=== PATIENT | male | born 1965 | race Caucasian/White ===

== ENCOUNTER 2016-04-20 11:54 | Emergency (ER) | payer MEDICAID ==
[~2016-04-20] VITALS: Ht 170.2 cm; Wt 65.9 kg
[~2016-04-20 11:54] MED LIST: AMBIEN 5MG TABLE5 MG; AMOXICILLIN 50500 MG PO; AMOXICILLIN 8751 TAB PO; AMOXICILLIN500 M1 PO; ASPI81EC86; ASPIR-LOW81 MG PO; ASPIRIN E.C. 8181 MG PO; BACTRIM DS 8001 TAB PO; BETAMETHASONE; CELEXA; CENTRUM1 TAB PO; CLEOCIN HC150 MG/CAP PO; CLINDAMYCIN HC150 MG PO; CLINDAMYCIN HC300 MG PO; COGENTIN 1MG1 MG/TAB PO; CORTIZONE-10 MAXIM1% TP; ESCITALOPRAM; FLAGYL500 MG PO; GLUCOSAMINE; KLONOPIN 0.5MG0.5 MG PO; KLOR-CON 1010 MEQ PO; LEVAQUIN 750MG750 M1 PO; LEXAPRO 10MG10 MG PO; LEXAPRO20 MG PO; LORTAB 5/500 501 TAB PO; NEXIUM 20MG20 MG PO; NORCO 325 MG-51 TAB PO; NORCO 325 MG-7.1 TAB PO; PEN-VEE K500 MG PO; PENTASA500 MG PO; PERCOCET 5/321 UDTAB PO; REMERON SOLTAB45 MG PO; SEPTRA DS 8001 TAB PO; SEROQUEL; SEROQUEL XR150 MG PO; SEROQUEL200 MG PO; SEROQUEL50 MG PO; TESSALON P100 MG/CAP PO; THORAZINE PO; TRAMADOL50 MG PO; ULTRAM 50MG TAB50 MG PO; ULTRAM50 MG PO; VICODIN 5/5001 UDTAB PO; XANAX .25M0.25 MG/TA PO; [UNRECOGNIZED DRUG - OTHER]; [UNRECOGNIZED DRUG - OTHER]
[2016-04-20 11:58] VITALS: BP 122/86; TEMP 97.7
[2016-04-20] MEDS ORDERED: NORCO 325 MG-51 TAB PO (13:47)
[2016-04-20] MEDS ORDERED: CLEOCIN HCL300 MG PO (13:47)
[2016-04-20 13:56] VITALS: PULSE 82
[2016-07-20] MEDS ORDERED: RAPAFLO4 MG PO (15:07)
[2016-07-21] MEDS ORDERED: COLESTID 1GM1 G PO (06:46)
[2016-07-21] MEDS ORDERED: FLAGYL500 MG PO (06:47)
[2016-07-24] MEDS ORDERED: COLESTID 1GM1 G PO (09:22)
[2016-07-24] MEDS ORDERED: PREDNISONE 5MG5 MG PO (09:24)
== END 2016-04-20 13:57 | disposition home or self-care (01) ==
LOC: COL.ER 11:54
DX: S61.012A Laceration without foreign body of left thumb without damage to nail, initial encounter (principal); K08.89 Other specified disorders of teeth and supporting structures; W26.0XXA Contact with knife, initial encounter

== ENCOUNTER 2016-07-23 02:17 | Emergency (ER) | payer MEDICAID ==
[~2016-07-23] VITALS: Ht 170.2 cm; Wt 79.1 kg
[~2016-07-23 02:17] MED LIST changes: +CLEOCIN HCL300 MG PO; +COLESTID 1GM1 G PO; +RAPAFLO4 MG PO
[2016-07-23 02:20] VITALS: BP 129/80; PULSE 60; TEMP 98.1
[2016-07-23] MEDS ORDERED: AMOXICILLIN 50500 MG PO (02:35)
[2016-07-23] MEDS ORDERED: SEROQUEL 1100 MG/TAB PO (02:43)
[2016-07-23] MEDS ORDERED: PROTONIX 40MG T40 MG PO (02:44)
[2016-07-23] MEDS ORDERED: ALBUTEROL0.83 MG/ML IH (02:45)
[2016-07-23] MEDS ORDERED: PROAIR HFA0.09 MG/AC IH (02:45)
[2016-07-24] MEDS ORDERED: COLESTID 1GM1 G PO (09:22)
[2016-07-24] MEDS ORDERED: PREDNISONE 5MG5 MG PO (09:24)
== END 2016-07-23 02:50 | disposition home or self-care (01) ==
LOC: COL.ER 02:17
DX: K08.89 Other specified disorders of teeth and supporting structures (principal); K03.81 Cracked tooth; F17.210 Nicotine dependence, cigarettes, uncomplicated; F31.9 Bipolar disorder, unspecified

== ENCOUNTER → 2016-07-24 | Outpatient (CLI) | payer MEDICAID ==
[~2016-07-24] VITALS: Ht 170.2 cm; Wt 77.5 kg
[~2016-07-24] MED LIST changes: +ALBUTEROL0.83 MG/ML IH; +CARAFATE 1GM1 G PO; +DOXYCYCLINE HY100 MG PO; +PLAVIX 75MG TAB75 MG PO; +PRAVACHOL 40MG40 MG PO; +PREDNISONE 5MG5 MG PO; +PROAIR HFA0.09 MG/AC IH; +PROTONIX 40MG T40 MG PO; +SEROQUEL 1100 MG/TAB PO; +TOPROL XL 25MG25 MG PO
[2016-07-24 09:26] VITALS: BP 121/89; PULSE 65
[2016-07-24 10:48] VITALS: BP 154/66; PULSE 73
[2016-07-24 10:49] VITALS: BP 119/69; PULSE 75
[2016-07-24 10:50] VITALS: BP 118/66; PULSE 69
== END ==
LOC: COL.CARD 09:13
DX: R07.9 Chest pain, unspecified (principal)
CPT/HCPCS: A9502; J2785

== ENCOUNTER 2016-07-28 09:51 | Emergency (ER) | payer MEDICAID ==
[~2016-07-28] VITALS: Ht 170.2 cm; Wt 72.7 kg
[~2016-07-28 09:51] MED LIST changes: -CARAFATE 1GM1 G PO; -DOXYCYCLINE HY100 MG PO; -PLAVIX 75MG TAB75 MG PO; -PRAVACHOL 40MG40 MG PO; -TOPROL XL 25MG25 MG PO
[2016-07-28 09:55] VITALS: BP 115/68; PULSE 82; TEMP 97.9
[2016-07-28] MEDS ORDERED: DOXYCYCLINE HY100 MG PO (10:20)
== END 2016-07-28 10:44 | disposition home or self-care (01) ==
LOC: COL.ER 09:51
DX: L03.113 Cellulitis of right upper limb (principal)

== ENCOUNTER → 2016-07-30 | Outpatient (CLI) | payer MEDICAID ==
[~2016-07-30] MED LIST changes: +CARAFATE 1GM1 G PO; +DOXYCYCLINE HY100 MG PO; +PLAVIX 75MG TAB75 MG PO; +PRAVACHOL 40MG40 MG PO; +TOPROL XL 25MG25 MG PO
== END ==
LOC: COL.RAD 07-28 09:45
DX: B18.2 Chronic viral hepatitis C (principal); Z53.09 Procedure and treatment not carried out because of other contraindication; R74.8 Abnormal levels of other serum enzymes; R10.84 Generalized abdominal pain

== ENCOUNTER 2016-07-31 09:32 | Day surgery (SDC) | payer MEDICAID ==
[~2016-07-31] VITALS: Ht 170.2 cm; Wt 77.9 kg
[~2016-07-31 09:32] MED LIST changes: -CARAFATE 1GM1 G PO; -PLAVIX 75MG TAB75 MG PO; -PRAVACHOL 40MG40 MG PO; -TOPROL XL 25MG25 MG PO
[2016-07-31 10:20] VITALS: BP 118/84; PULSE 68; TEMP 98.1
[2016-07-31 10:43] LABS: BASO % 0.5 % (0.0-2.0); EOS # 0.3 (0.0-0.7); EOS % 4.4 % (0-4.0); GRAN # 2.2 (1.4-6.5); GRAN % 36.1 % (42.2-75.2); HEMATOCRIT 43.5 % (42.0-52.0); LYMPH # 2.7 (1.2-3.4); LYMPH % 44.6 % (20.0-51.0); MEAN CELL VOLUME 95 fl (80.0-100.0); MEAN CORPUSCULAR HEMOGLOBIN 33 pg (27.0-31.0); MEAN CORPUSCULAR HGB CONC 35 g/dl (33.0-37.0); MEAN PLATELET VOLUME 10.2 fl (7.4-10.4); MONO # 0.9 (0.1-0.6); MONO % 14.1 % (1.7-9.3); PLATELET COUNT 200 K/mm3 (130-400); RED BLOOD COUNT 4.56 M/mm3 (4.20-5.60); REDCELL DISTRIBUTION WIDTH-CV 14.5 % (11.5-14.5); WHITE BLOOD COUNT 6.1 K/mm3 (4.8-10.8)
[2016-07-31 10:45] LABS: PROTHROMBIN TIME 10.9 SECONDS (9.7-12.8)
[2016-07-31 11:29] LABS: ADJUSTED CALCIUM 8.7 mg/dL (8.4-10.2); ALBUMIN 4.1 gm/dL (3.5-5.0); BILIRUBIN,TOTAL 0.7 mg/dL (0.0-1.0); CALCIUM 8.8 mg/dL (8.4-10.2); CREATININE, serum 0.67 mg/dL (0.66-1.25)
[2016-07-31 12:00] VITALS: BP 113/66; PULSE 52; TEMP 97.7
[2016-07-31 12:15] VITALS: BP 125/85; PULSE 60
[2016-07-31 12:30] VITALS: BP 132/94; PULSE 70
[2016-07-31 13:37] VITALS: BP 96/67; PULSE 55
== END 2016-07-31 12:54 | disposition home or self-care (01) ==
LOC: SDCO 09:32
PROVIDERS: Physician Assistant
DX: K21.9 Gastro-esophageal reflux disease without esophagitis (principal); K30 Functional dyspepsia; M19.90 Unspecified osteoarthritis, unspecified site; B18.2 Chronic viral hepatitis C; J45.909 Unspecified asthma, uncomplicated; F32.9 Major depressive disorder, single episode, unspecified
CPT/HCPCS: 87522; J2250; J3010; J7030

== ENCOUNTER → 2016-08-05 | Outpatient (CLI) | payer MEDICAID ==
[~2016-08-05] MED LIST changes: +CARAFATE 1GM1 G PO; +PLAVIX 75MG TAB75 MG PO; +PRAVACHOL 40MG40 MG PO; +TOPROL XL 25MG25 MG PO
== END ==
LOC: COL.RAD 09:43
DX: B18.2 Chronic viral hepatitis C (principal); R74.8 Abnormal levels of other serum enzymes; R10.9 Unspecified abdominal pain; K76.89 Other specified diseases of liver; Z90.49 Acquired absence of other specified parts of digestive tract

== ENCOUNTER 2016-08-09 02:05 | Inpatient (IN) | payer MEDICAID ==
[~2016-08-09] VITALS: Ht 165.1 cm; Wt 78.4 kg
[2016-08-09] VITALS (277 sets, daily range): BP systolic 93–130; BP diastolic 56–86; PULSE 77–95; TEMP 97.7–98.4; O2SAT 85–100
[~2016-08-09 02:05] MED LIST changes: -CARAFATE 1GM1 G PO; -PLAVIX 75MG TAB75 MG PO; -PRAVACHOL 40MG40 MG PO; -TOPROL XL 25MG25 MG PO
[2016-08-09 06:46] LABS: MEAN CELL VOLUME 91 fl (80.0-100.0); MEAN CORPUSCULAR HGB CONC 36 g/dl (33.0-37.0); MEAN PLATELET VOLUME 10.9 fl (7.4-10.4); PLATELET COUNT 173 K/mm3 (130-400); RED BLOOD COUNT 3.58 M/mm3 (4.20-5.60); REDCELL DISTRIBUTION WIDTH-CV 13.7 % (11.5-14.5); WHITE BLOOD COUNT 12.9 K/mm3 (4.8-10.8)
[2016-08-09 06:49] LABS: ADD PATHOLOGY DIFF REVIEW NO; HEMATOCRIT 32.7 % (42.0-52.0); HEMOGLOBIN 11.6 g/dl (13.5-18.0); MEAN CORPUSCULAR HEMOGLOBIN 32 pg (27.0-31.0)
[2016-08-09 07:03] LABS: ADJUSTED CALCIUM 8.5 mg/dL (8.4-10.2); ALBUMIN 3.7 gm/dL (3.5-5.0); BILIRUBIN,TOTAL 1.7 mg/dL (0.0-1.0); CALCIUM 8.3 mg/dL (8.4-10.2); CREATININE, serum 1.58 mg/dL (0.66-1.25); POTASSIUM 4.6 mmol/L (3.4-5.0); TOTAL PROTEIN 6.4 gm/dL (6.4-8.2)
[2016-08-09 08:04] LABS: BAND 7 % (0-10); NEUTROPHILS 64 % (42.0-75.2); PLATELET ESTIMATE NORMAL (NORMAL); TOTAL CELLS COUNTED 100
[2016-08-09 11:20] LABS: PH 5 (5-8); SQUAMOUS EPITHELIAL None Seen /hpf; URINE APPEARANCE Clear; URINE BACTERIA None Seen /hpf; URINE BILIRUBIN Negative (NEGATIVE); URINE BLOOD Negative (NEGATIVE); URINE COLOR Yellow; URINE GLUCOSE 1+ (NEGATIVE); URINE KETONE Trace (NEGATIVE); URINE RBC 0-2 /hpf; URINE UROBILINOGEN Negative (NEGATIVE); URINE WBC 0-2 /hpf
[2016-08-09 11:56] LABS: AMPHETAMINE URINE POSITIVE; BARBITURATES URINE NEGATIVE; BENZODIAZEPINES URINE POSITIVE; BUPRENORPHINE URINE NEGATIVE; METHADONE URINE NEGATIVE; OPIATES URINE NEGATIVE; OXYCODONE URINE NEGATIVE; PHENCYCLIDINE URINE NEGATIVE; PROPOXYPHENE URINE NEGATIVE; THC CANNABINOIDS URINE NEGATIVE
[2016-08-10] VITALS (339 sets, daily range): BP systolic 93–132; BP diastolic 71–88; PULSE 80–97; TEMP 97.8–98.9; O2SAT 76–100
[2016-08-10 09:56] LABS: BASO % 0.4 % (0.0-2.0); EOS # 0.1 (0.0-0.7); EOS % 1.1 % (0-4.0); GRAN # 4.6 (1.4-6.5); GRAN % 63.5 % (42.2-75.2); LYMPH # 1.5 (1.2-3.4); LYMPH % 19.9 % (20.0-51.0); MEAN CELL VOLUME 95 fl (80.0-100.0); MEAN CORPUSCULAR HGB CONC 34 g/dl (33.0-37.0); MEAN PLATELET VOLUME 10.6 fl (7.4-10.4); MONO # 1.1 (0.1-0.6); MONO % 14.8 % (1.7-9.3); PLATELET COUNT 141 K/mm3 (130-400); RED BLOOD COUNT 3.18 M/mm3 (4.20-5.60); REDCELL DISTRIBUTION WIDTH-CV 14.1 % (11.5-14.5); WHITE BLOOD COUNT 7.3 K/mm3 (4.8-10.8)
[2016-08-10 10:06] LABS: CALCIUM 7.8 mg/dL (8.4-10.2); CREATININE, serum 0.76 mg/dL (0.66-1.25)
[2016-08-10 10:31] LABS: HEMATOCRIT 30.3 % (42.0-52.0); HEMOGLOBIN 10.4 g/dl (13.5-18.0); MEAN CORPUSCULAR HEMOGLOBIN 33 pg (27.0-31.0)
[2016-08-11] VITALS: BP 128/76; PULSE 98; TEMP 98
[2016-08-11 04:01] VITALS: BP 134/76; PULSE 77; TEMP 98.3
[2016-08-11 07:20] VITALS: BP 129/88; PULSE 78; TEMP 98.1
[2016-08-11 12:05] VITALS: BP 129/88; BP 135/75; PULSE 78; TEMP 98.4
== END 2016-08-11 16:35 | disposition home or self-care (01) | DRG 896 ==
LOC: IMCU 02:05
PROVIDERS: Family Medicine
DX: F15.121 Other stimulant abuse with intoxication delirium (principal); K22.6 Gastro-esophageal laceration-hemorrhage syndrome; K92.0 Hematemesis; N17.9 Acute kidney failure, unspecified; F10.159 Alcohol abuse with alcohol-induced psychotic disorder, unspecified; F25.0 Schizoaffective disorder, bipolar type; Y90.0 Blood alcohol level of less than 20 mg/100 ml
CPT/HCPCS: 90791-AI; 99222-AI; 99232-AI; 99233-AI; 99239; C9113; J1630; J2060; J7030

== ENCOUNTER 2016-08-13 18:18 | Observation (INO) | payer MEDICAID ==
[~2016-08-13] VITALS: Wt 77.3 kg
[2016-08-13 19:01] LABS: BASO % 0.4 % (0.0-2.0); EOS # 0.5 (0.0-0.7); GRAN # 4.2 (1.4-6.5); GRAN % 47.7 % (42.2-75.2); HEMATOCRIT 36.8 % (42.0-52.0); HEMOGLOBIN 12.9 g/dl (13.5-18.0); LYMPH # 2.8 (1.2-3.4); LYMPH % 31.3 % (20.0-51.0); MEAN CELL VOLUME 93 fl (80.0-100.0); MEAN CORPUSCULAR HEMOGLOBIN 33 pg (27.0-31.0); MEAN CORPUSCULAR HGB CONC 35 g/dl (33.0-37.0); MEAN PLATELET VOLUME 10.3 fl (7.4-10.4); MONO # 1.4 (0.1-0.6); MONO % 15.2 % (1.7-9.3); PLATELET COUNT 238 K/mm3 (130-400); RED BLOOD COUNT 3.94 M/mm3 (4.20-5.60); REDCELL DISTRIBUTION WIDTH-CV 13.5 % (11.5-14.5); WHITE BLOOD COUNT 8.9 K/mm3 (4.8-10.8)
[2016-08-13 19:13] LABS: ADJUSTED CALCIUM 8.9 mg/dL (8.4-10.2); ALANINE AMINOTRANSFERASE 55 U/L (21-72); ALBUMIN 3.9 gm/dL (3.5-5.0); ALKALINE PHOSPHATASE 55 U/L (50-136); ANION GAP 12 mmol/L (7-16); BILIRUBIN,TOTAL 0.5 mg/dL (0.0-1.0); BLOOD UREA NITROGEN 14 mg/dL (9-20); CALCIUM 8.8 mg/dL (8.4-10.2); CARBON DIOXIDE 24 mmol/L (22-30); CHLORIDE 102 mmol/L (98-107); CREATININE, serum 0.76 mg/dL (0.66-1.25); GLUCOSE 88 mg/dL (74-106); LIPASE 976 U/L (23-300); POTASSIUM 3.9 mmol/L (3.4-5.0); SODIUM 138 mmol/L (137-145); TOTAL PROTEIN 6.8 gm/dL (6.4-8.2)
[2016-08-13 19:14] LABS: C-REACTIVE PROTEIN < 0.5 mg/dL (0.0-0.9)
[2016-08-13 19:23] LABS: TROPONIN-I < 0.012 ng/mL (0.000-0.034)
[2016-08-13 19:24] LABS: ERYTHROCYTE SEDIMENTATION RATE 19 mm/hr (0-15)
[2016-08-13 19:41] LABS: AMPHETAMINE URINE NEGATIVE; BARBITURATES URINE NEGATIVE; BENZODIAZEPINES URINE NEGATIVE; BUPRENORPHINE URINE NEGATIVE; METHADONE URINE NEGATIVE; OPIATES URINE NEGATIVE; OXYCODONE URINE NEGATIVE; PHENCYCLIDINE URINE NEGATIVE; PROPOXYPHENE URINE NEGATIVE; THC CANNABINOIDS URINE NEGATIVE
[2016-08-13 22:10] VITALS: BP 153/92; PULSE 65; TEMP 97.9
[2016-08-14 03:48] VITALS: BP 102/60; PULSE 58; TEMP 98
[2016-08-14 08:41] VITALS: BP 127/91; PULSE 61; TEMP 98.5
[2016-08-14 12:40] VITALS: BP 123/77; PULSE 54
[2016-08-14 12:57] VITALS: BP 113/76; PULSE 60
== END 2016-08-14 12:45 | disposition left against medical advice (07) ==
LOC: COL.ER 18:18 → MEDICAL 20:25
PROVIDERS: Emergency Medicine
DX: K29.30 Chronic superficial gastritis without bleeding (principal); K21.9 Gastro-esophageal reflux disease without esophagitis; F41.9 Anxiety disorder, unspecified; F32.9 Major depressive disorder, single episode, unspecified; F17.210 Nicotine dependence, cigarettes, uncomplicated; J44.9 Chronic obstructive pulmonary disease, unspecified; J45.909 Unspecified asthma, uncomplicated; K52.9 Noninfective gastroenteritis and colitis, unspecified; F20.0 Paranoid schizophrenia; Z87.448 Personal history of other diseases of urinary system; Z90.49 Acquired absence of other specified parts of digestive tract
CPT/HCPCS: C9113; G0378; G8978-GP; G8979-GP; G8980-GP; J1170; J2405; J2550; J2704; J2765; J7030; J7120; Q9967

== ENCOUNTER 2016-09-09 20:56 | Observation (INO) | payer MEDICAID ==
[~2016-09-09] VITALS: Ht 170.2 cm; Wt 72.8 kg
[2016-09-09 21:41] LABS: HEMATOCRIT 39.9 % (42.0-52.0); HEMOGLOBIN 13.8 g/dl (13.5-18.0); MEAN CELL VOLUME 93 fl (80.0-100.0); MEAN CORPUSCULAR HEMOGLOBIN 32 pg (27.0-31.0); MEAN CORPUSCULAR HGB CONC 35 g/dl (33.0-37.0); MEAN PLATELET VOLUME 10.9 fl (7.4-10.4); PLATELET COUNT 155 K/mm3 (130-400); RED BLOOD COUNT 4.28 M/mm3 (4.20-5.60); REDCELL DISTRIBUTION WIDTH-CV 13.3 % (11.5-14.5); WHITE BLOOD COUNT 10.6 K/mm3 (4.8-10.8)
[2016-09-09 21:43] LABS: PH 6 (5-8); SQUAMOUS EPITHELIAL None Seen /hpf; URINE APPEARANCE Clear; URINE BACTERIA None Seen /hpf; URINE BILIRUBIN Negative (NEGATIVE); URINE BLOOD 1+ (NEGATIVE); URINE COLOR Yellow; URINE GLUCOSE 2+ (NEGATIVE); URINE KETONE Negative (NEGATIVE); URINE RBC 0-2 /hpf; URINE UROBILINOGEN Negative (NEGATIVE); URINE WBC 0-2 /hpf
[2016-09-09 21:48] LABS: ADD PATHOLOGY DIFF REVIEW NO
[2016-09-09 21:48] LABS: AMPHETAMINE URINE POSITIVE; BARBITURATES URINE NEGATIVE; BENZODIAZEPINES URINE NEGATIVE; BUPRENORPHINE URINE NEGATIVE; METHADONE URINE NEGATIVE; OPIATES URINE NEGATIVE; OXYCODONE URINE NEGATIVE; PHENCYCLIDINE URINE NEGATIVE; PROPOXYPHENE URINE NEGATIVE; THC CANNABINOIDS URINE NEGATIVE
[2016-09-09 21:50] LABS: ALANINE AMINOTRANSFERASE 201 U/L (21-72); ALKALINE PHOSPHATASE 66 U/L (50-136); ANION GAP 9 mmol/L (7-16); BILIRUBIN,TOTAL 0.6 mg/dL (0.0-1.0); BLOOD UREA NITROGEN 21 mg/dL (9-20); C-REACTIVE PROTEIN 1.3 mg/dL (0.0-0.9); CARBON DIOXIDE 30 mmol/L (22-30); CHLORIDE 93 mmol/L (98-107); GLUCOSE 94 mg/dL (74-106); LIPASE 233 U/L (23-300); POTASSIUM 3.8 mmol/L (3.4-5.0); SODIUM 132 mmol/L (137-145)
[2016-09-09 22:05] LABS: TROPONIN-I 0.041 ng/mL (0.000-0.034)
[2016-09-09 22:21] LABS: BAND 14 % (0-10); NEUTROPHILS 29 % (42.0-75.2); TOTAL CELLS COUNTED 100
[2016-09-09 23:16] VITALS: BP 117/70; PULSE 71; TEMP 98.2
[2016-09-10 00:13] VITALS: BP 117/70; PULSE 95; TEMP 98.3
[2016-09-10 00:47] LABS: HEMATOCRIT 36.5 % (42.0-52.0); HEMOGLOBIN 12.6 g/dl (13.5-18.0)
[2016-09-10 03:12] VITALS: BP 103/58; PULSE 56; TEMP 98.8
[2016-09-10 07:14] LABS: HEMOGLOBIN 12.4 g/dl (13.5-18.0); MEAN CELL VOLUME 95 fl (80.0-100.0); MEAN CORPUSCULAR HEMOGLOBIN 32 pg (27.0-31.0); MEAN CORPUSCULAR HGB CONC 34 g/dl (33.0-37.0); PLATELET COUNT 148 K/mm3 (130-400); RED BLOOD COUNT 3.83 M/mm3 (4.20-5.60); REDCELL DISTRIBUTION WIDTH-CV 13.3 % (11.5-14.5); WHITE BLOOD COUNT 9.9 K/mm3 (4.8-10.8)
[2016-09-10 07:19] LABS: ADD PATHOLOGY DIFF REVIEW NO; HEMATOCRIT 36.3 % (42.0-52.0)
[2016-09-10 07:23] LABS: ALBUMIN 3.3 gm/dL (3.5-5.0); BILIRUBIN,TOTAL 0.6 mg/dL (0.0-1.0); CALCIUM 8.4 mg/dL (8.4-10.2); CREATININE, serum 0.86 mg/dL (0.66-1.25); POTASSIUM 4.1 mmol/L (3.4-5.0); TOTAL PROTEIN 5.8 gm/dL (6.4-8.2)
[2016-09-10 07:56] LABS: BAND 7 % (0-10); EOSINOPHIL 3 % (0-4); NEUTROPHILS 42 % (42.0-75.2); TOTAL CELLS COUNTED 100
[2016-09-10 07:57] LABS: PLATELET ESTIMATE DECREASED (NORMAL)
[2016-09-10 08:27] VITALS: BP 90/53; PULSE 63; TEMP 98.5
[2016-09-10 16:50] VITALS: BP 121/71; PULSE 67; TEMP 98.2
[2016-09-10 19:39] VITALS: BP 136/74; PULSE 73; TEMP 98.6
[2016-09-11 00:56] VITALS: BP 122/65; PULSE 57; TEMP 98.8
[2016-09-11 03:09] VITALS: BP 97/71; PULSE 56; TEMP 98.1
[2016-09-11 08:13] VITALS: BP 115/75; PULSE 56; TEMP 98.2
[2016-09-11 08:16] LABS: HEMOGLOBIN 12.3 g/dl (13.5-18.0); MEAN CELL VOLUME 95 fl (80.0-100.0); MEAN CORPUSCULAR HEMOGLOBIN 32 pg (27.0-31.0); MEAN CORPUSCULAR HGB CONC 34 g/dl (33.0-37.0); MEAN PLATELET VOLUME 11.1 fl (7.4-10.4); PLATELET COUNT 140 K/mm3 (130-400); RED BLOOD COUNT 3.86 M/mm3 (4.20-5.60); REDCELL DISTRIBUTION WIDTH-CV 13.3 % (11.5-14.5); WHITE BLOOD COUNT 9.6 K/mm3 (4.8-10.8)
[2016-09-11 08:17] LABS: CALCIUM 8.7 mg/dL (8.4-10.2); CREATININE, serum 0.77 mg/dL (0.66-1.25); POTASSIUM 4.1 mmol/L (3.4-5.0)
[2016-09-11 08:19] LABS: ADD PATHOLOGY DIFF REVIEW NO; HEMATOCRIT 36.6 % (42.0-52.0)
[2016-09-11 08:28] LABS: PROTHROMBIN TIME 10.7 SECONDS (9.7-12.8)
[2016-09-11 08:31] LABS: PARTIAL THROMBOPLASTIN TIME 27.1 SECONDS (26.0-37.0)
[2016-09-11 09:13] LABS: EOSINOPHIL 4 % (0-4); METAMYELOCYTE 2 % (0-0); NEUTROPHILS 57 % (42.0-75.2); PLATELET ESTIMATE NORMAL (NORMAL); TOTAL CELLS COUNTED 100
[2016-09-11 11:21] VITALS: BP 143/79; PULSE 69; TEMP 98.4
[2016-09-11 13:45] VITALS: BP 122/77; PULSE 66
[2016-09-11 15:49] VITALS: BP 118/77; PULSE 55; TEMP 97.9
[2016-09-11] MEDS ORDERED: PLAVIX 75MG TAB75 MG PO (16:12)
[2016-09-11] MEDS ORDERED: TOPROL XL 25MG25 MG PO (16:13)
[2016-09-11] MEDS ORDERED: CARAFATE 1GM1 G PO (16:13)
[2016-09-11] MEDS ORDERED: PRAVACHOL 40MG40 MG PO (16:14)
== END 2016-09-11 18:14 | disposition home or self-care (01) ==
LOC: COL.ER 20:56 → MEDICAL 22:42
PROVIDERS: Emergency Medicine; Family Medicine; Internal Medicine Interventional Cardiology; Physician Assistant
DX: R07.9 Chest pain, unspecified (principal); K92.0 Hematemesis; K21.9 Gastro-esophageal reflux disease without esophagitis; I25.10 Atherosclerotic heart disease of native coronary artery without angina pectoris; F19.10 Other psychoactive substance abuse, uncomplicated; K86.0 Alcohol-induced chronic pancreatitis; I21.4 Non-ST elevation (NSTEMI) myocardial infarction; F41.9 Anxiety disorder, unspecified; F32.9 Major depressive disorder, single episode, unspecified; F20.0 Paranoid schizophrenia; B19.20 Unspecified viral hepatitis C without hepatic coma; F17.210 Nicotine dependence, cigarettes, uncomplicated; R10.9 Unspecified abdominal pain; N19 Unspecified kidney failure; R19.7 Diarrhea, unspecified; R79.89 Other specified abnormal findings of blood chemistry; Z79.01 Long term (current) use of anticoagulants; Z90.49 Acquired absence of other specified parts of digestive tract; Z91.14 Patient's other noncompliance with medication regimen; Z87.19 Personal history of other diseases of the digestive system
CPT/HCPCS: 99222-AI; 99233-AI; C9113; G0378; J1170; J2405; J7030

== ENCOUNTER 2018-08-08 04:26 | Inpatient (IN) | payer MEDICAID ==
[2018-08-08] VITALS (239 sets, daily range): BP systolic 124–128; BP diastolic 66–85; PULSE 75–88; TEMP 98–98.1; O2SAT 62–100
[~2018-08-08] VITALS: Ht 170.2 cm; Wt 80.4 kg
--- NOTE | 2018-08-08 04:20 | NUR ---
Pt arrived to room 352 via [facility]. Pt resting/sleeping. Upon trying to introduce myself et orient pt to room, pt is very sporatic, swinging his arms around and mumbling incoherently. Unable to oriented pt or obtain VS at this time. Unable to get any information for admit assessment, meds or allergies. Nikki HERNANDEZ notified, probable transfer to ICU for closer monitoring.
[~2018-08-08 04:26] MED LIST changes: +CARAFATE 1GM1 G PO; +PLAVIX 75MG TAB75 MG PO; +PRAVACHOL 40MG40 MG PO; +TOPROL XL 25MG25 MG PO
[2018-08-08] MEDS ORDERED: PLAVIX 75MG TAB75 MG PO (05:40)
[2018-08-08] MEDS ORDERED: LEXAPRO 10MG10 MG PO (05:40)
[2018-08-08] MEDS ORDERED: CARAFATE 1GM1 G PO (05:40)
[2018-08-08] MEDS ORDERED: RAPAFLO4 MG PO (05:42)
[2018-08-08] MEDS ORDERED: PENTASA500 MG PO (05:42)
[2018-08-08] MEDS ORDERED: SEROQUEL XR150 MG PO (05:42)
[2018-08-08] MEDS ORDERED: 00186-0372-20 IH (05:42)
[2018-08-08] MEDS ORDERED: PROTONIX 40MG T40 MG PO (05:43)
[2018-08-08] MEDS ORDERED: PRAVACHOL 40MG40 MG PO (05:43)
[2018-08-08] MEDS ORDERED: COLESTID 1GM1 G PO (05:44)
[2018-08-08] MEDS ORDERED: NEURONTIN300 MG/CAP PO (05:44)
--- NOTE | 2018-08-08 05:44 | NUR ---
REPORT RECEIVED FROM GREYSON ESPINOZA.
--- NOTE | 2018-08-08 05:44 | NUR ---
Report given to MIDLEVEL PROVIDER et pt transferred.
[2018-08-08] MEDS ORDERED: LOPRESSOR 225 MG/TAB PO (05:45)
[2018-08-08] MEDS ORDERED: TRICOR 48MG48 MG PO (05:45)
--- NOTE | 2018-08-08 06:04 | NUR ---
PT ARRIVED IN UNIT AT 0555, PT VERY RESTLESS AND AGITATED RESPONDS TO HIS NAME BUT VERY CONFUSED. PT KEEPS FLIPPING IN BED AND COULD NOT STAY STILL. UNABALE TO DO ADMISSION AT THIS TIME, WILL PASS ON TO DAY SHIFT NURSE WHEN PT IS ABLE TO ANSWER QUESTIONS, CALM AND ALERT.
--- NOTE | 2018-08-08 06:23 | NUR ---
UNABLE TO COMPLETE FULL ADMISSION ASESSMENT AND MED REC PT IS CONFUSED, RESTLESS AND AGITATED. WILL PASS ALONG TO DAY SHIFT WHEN PT IS MORE CALM AND ALERT.
--- NOTE | 2018-08-08 07:15 | NUR ---
ATTEMPTED TO CALL LAB TO OBTAIN SPECIMENS BUT PT STILL CONFUSED, THRASHING AROUND IN BED.
--- NOTE | 2018-08-08 08:00 | NUR ---
PT INTERMITTENTLY AWAKE AND WILL RESPOND TO NAME AT TIMES. PT CONFUSED AND INTERMITTENTLY THRASHES AROUND IN BED. PT WILL RESPOND TO NAME BUT DOES NOT FOLLOW COMMANDS. PT BEING GIVEN ATIVAN PRN FOR AGITATION. PT WITHDRAWS FROM PAIN. NO WEAKNESS NOTED. SEIZURE PADS APPLIED TO BED TO PREVENT INJURY FROM THRASHING AROUND. PT NOTED TO HIT EXTRMEMITIES ON SIDE RAILS AND HEAD OFF HEAD BOARD PRIOR TO APPLYING SEIZURE PADS AND ADDITIONAL PILLOWS. PT'S PUPILS 3MM IN DIAMETER, BRISK AND REACTIVE. PT ON ROOM AIR, NO COUGH NOTED. LUNGS CLEAR. ABD FLAT, NONTENDER, BS ACTIVE. NO EDEMA NOTED. PT HAS NOT VOIDED FOR MY SHIFT. SKIN INTACT.
[2018-08-08 09:36] LABS: HEMOGLOBIN 11.2 g/dl (13.5-18.0); MEAN CELL VOLUME 93 fl (80.0-100.0); MEAN CORPUSCULAR HEMOGLOBIN 31 pg (27.0-31.0); MEAN CORPUSCULAR HGB CONC 34 g/dl (33.0-37.0); PLATELET COUNT 170 K/mm3 (130-400); RED BLOOD COUNT 3.58 M/mm3 (4.20-5.60); REDCELL DISTRIBUTION WIDTH-CV 13.2 % (11.5-14.5)
[2018-08-08 09:37] LABS: HEMATOCRIT 33.2 % (42.0-52.0)
[2018-08-08 09:50] LABS: EOSINOPHIL 1 % (0-4); LYMPHOCYTE 11 % (20.0-51.0); NEUTROPHILS 71 % (42.0-75.2); PLATELET ESTIMATE NORMAL (NORMAL)
[2018-08-08 09:51] LABS: ALANINE AMINOTRANSFERASE 42 U/L (21-72); ALBUMIN 3.3 gm/dL (3.5-5.0); ALKALINE PHOSPHATASE 63 U/L (50-136); ANION GAP 9 mmol/L (7-16); AST,SGOT 93 U/L (15-37); BILIRUBIN,TOTAL 1.3 mg/dL (0.0-1.0); BLOOD UREA NITROGEN 37 mg/dL (9-20); CALCIUM 8.3 mg/dL (8.4-10.2); CARBON DIOXIDE 21 mmol/L (22-30); CHLORIDE 109 mmol/L (98-107); CREATININE, serum 0.91 (0.66-1.25); GLUCOSE 90 mg/dL (74-106); PHOSPHOROUS 3.4 mg/dL (2.5-4.5); POTASSIUM 4.1 mmol/L (3.4-5.0); SODIUM 138 mmol/L (137-145); TOTAL PROTEIN 5.7 gm/dL (6.4-8.2)
--- NOTE | 2018-08-08 10:13 | NUR ---
SW attended clinical rounds. Patient slept the whole time. Patient is not very easily arroused. SW will follow up later today to meet with patient.
[2018-08-08 10:16] LABS: TROPONIN-I < 0.012 ng/mL (0.000-0.035)
[2018-08-08 10:32] LABS: TSH w REFLEX 0.694 uIU/mL (0.465-4.680)
--- NOTE | 2018-08-08 11:29 | NUR ---
First visit from the percussion instrument repairer. No needs right now.
--- NOTE | 2018-08-08 12:30 | NUR ---
PT MORE ALERT AND ABLE TO SIT UP AND EAT FULL LIQUID TRAY. PT ABLE TO VERBALIZE THAT HE HAS TO URINATE. PT ABLE TO URINATE IN URINAL WITH SOME ASSISTANCE.
--- NOTE | 2018-08-08 14:07 | NUR ---
RECEIVED REPORT FROM GREYSON PATEL FROM ICU.
--- NOTE | 2018-08-08 14:29 | NUR ---
PT TRANSPORTED VIA WHEELCHAIR TO MEDICAL FLOOR RM 355. PT ALERT AND COOPERATIVE. CONTACT MADE WITH PRABHJOT RUBI UPON TRANSFER.
--- NOTE | 2018-08-08 14:45 | NUR ---
PT SITTING UP IN ROOM EATING LUNCH.
--- NOTE | 2018-08-08 17:07 | NUR ---
pt resting in bed at this time.intermittently agitation noted.seizures pads applied to bed for pt's safety.patient skin covered with scoriasis.pt received ativan and he is sleeping at this time.Vitals signs stable.patient denies any needs at this time.will continue to monitor.call light in reach
--- NOTE | 2018-08-08 23:30 | NUR ---
PT WAS VERY JITTERY AND RESTLESS THIS EVENING. THIS NURSE ADMINSTERED PRN ATIVAN X2 DOSES. PT REQESTED MEDICATION TO HELP HIM SLEEP, THIS NURSE CALLED AND RECIEVED AN ORDER FOR MELATONIN, ADMINSTERED MED. PT STATED THIS HS THAT HE WOULD SLEEP FOR SHORT INTERVALS AND WAKE UP HUNGRY, EAT A SNACK, THEN GO BACK TO SLEEP AND STATED HE WAS HOPEFUL THAT HE COULD GET SOME SLEEP THIS NOC WITH SLEEPING MED.
[2018-08-09] VITALS (7 sets, daily range): BP systolic 103–132; BP diastolic 64–86; PULSE 76–89; TEMP 97.5–98.6
--- NOTE | 2018-08-09 01:30 | NUR ---
PT HAS BEEN SLEEPING THIS NOC WITHOUT ISSUE. NOTED AUDIBLE SNORING AT TIMES. PT APPEARED TO HAVE FALLEN ASLEEP PRIOR TO MIDNIGHT VITALS CHECK THIS NURSE LET G[employer]BAL REG[employer] AFFAIRS MANAGER HOLD OFF ON VITALS UNTIL LATER HOUR SO PT COULD SLEEP.
--- NOTE | 2018-08-09 05:28 | NUR ---
PT SLEPT THROUGHOUT NOC. WOKE UP THIS MORNING MORE ORIENTED AND LESS NTED JITTERINESS.
--- NOTE | 2018-08-09 05:51 | NUR ---
PT WAS UP AND AMBULATED TO BATHROOM THIS AM. PT UNSTEADY ON FEET. FALL PRECATIONS AND BED ALARM REMAIN IN PLACE. PT REDIRECTED TO CALL FOR HELP. PT RETURNED TO BED, HAD A SNACK AND THEN WAS GOING TO ATTEMPT TO GET MORE SLEEP
[2018-08-09 07:59] LABS: BASO % 0.1 % (0.0-2.0); EOS # 0.1 (0.0-0.7); EOS % 1.8 % (0-4.0); GRAN # 4.6 (1.4-6.5); GRAN % 62.8 % (42.2-75.2); HEMATOCRIT 31.6 % (42.0-52.0); HEMOGLOBIN 10.5 g/dl (13.5-18.0); LYMPH # 1.3 (1.2-3.4); LYMPH % 17.5 % (20.0-51.0); MEAN CELL VOLUME 93 fl (80.0-100.0); MEAN CORPUSCULAR HEMOGLOBIN 31 pg (27.0-31.0); MEAN CORPUSCULAR HGB CONC 33 g/dl (33.0-37.0); MEAN PLATELET VOLUME 10.6 fl (7.4-10.4); MONO # 1.3 (0.1-0.6); MONO % 17.5 % (1.7-9.3); PLATELET COUNT 153 K/mm3 (130-400); REDCELL DISTRIBUTION WIDTH-CV 13.8 % (11.5-14.5)
[2018-08-09 08:09] LABS: ALBUMIN 3.1 gm/dL (3.5-5.0); BILIRUBIN,TOTAL 0.4 mg/dL (0.0-1.0); CALCIUM 8.4 mg/dL (8.4-10.2); CREATININE, serum 0.64 (0.66-1.25); POTASSIUM 3.6 mmol/L (3.4-5.0); TOTAL PROTEIN 5.5 gm/dL (6.4-8.2)
--- NOTE | 2018-08-09 08:22 | NUR ---
Assessment completed, alert/oriented to person and place, he is very axious, vital signs stable, overall condition is improve sence admission, night nurses report he did get some sleep overnight and had no major issues, as of now I have no repeat labs to review, he is very impulsive/ bed alarm is set on most sensitive and he has the closest room to the nurses desk however when he decides to get up he is so quick about it that he is almost always already up by the time the alarm sounds, he is unsteady on his feet, patient is eating and drinking well, will discuss plan of care for with attending physician today
--- NOTE | 2018-08-09 09:18 | NUR ---
Patient transferred to ICU#4 via wheelchair from medical floor with GREYSON Dlay and INTEGRATION PROJECT MANAGER. Patient ambulated to bed, placed on monitors, assessment complete, patient sitting in bed eating breakfast, bed alarm on, fall precautions in place. Call light within reach.
--- NOTE | 2018-08-09 09:30 | NUR ---
SW attended clinical rounds. The patient became agitated and combative. The patient is to transfer down to ICU for closer monitoring. SW to continue to follow.
--- NOTE | 2018-08-09 09:36 | NUR ---
Patient had a psychotic outburst around 0815, his bed alarm went Off and I heard a bunch of loud commotion , he had thrown his breakfast tray across the room, and was up pacing screaming and cursing and threatening to kill us if we didnt get him out of this hospital, we got him to calm down enough to sit down where I then gave PRN Ativan and notified hospitalist and secrurity, ordered to give an additonal 2mg Ativan and to give 50 mg Seroquel, patient did take the PO seroquel and we ordered him another breakfast tray and told him i would contact his per his request, we helped him get in the shower and clean up, he then started to get manic again and was trying to run out of his room, was able to calm him enough to get him sat down, ordered for transfer to ICU, I have given report to recieving nurse Catie RN, and transferred him to ICU room 4 via wheelchair with secruity escort
--- NOTE | 2018-08-09 10:53 | NUR ---
Belongings placed in locked cabinet.
--- NOTE | 2018-08-09 12:44 | NUR ---
Patient resting quietly in bed, bed alarm on for patient safety. Call light within reach.
--- NOTE | 2018-08-09 12:55 | NUR ---
Poison Control called for update, they will close the case at this time.
--- NOTE | 2018-08-09 16:25 | NUR ---
Patient up and out of bed, bed alarm going off, patient to commode, then assisted back to bed, assisted ordering lunch, bed alarm remains on for patient safety.
--- NOTE | 2018-08-09 16:52 | NUR ---
Patient was moved back to ICU today. ANAMARIA unable to meet with patient due to sedation. ANAMARIA attempted to contact his significant other, Lydia. The phone number provided was "busy" and ANAMARIA was not able to leave a message. ANAMARIA will contact [facility] to inquire if they have any other emergency contact information for patient.
--- NOTE | 2018-08-09 17:28 | NUR ---
Patient "roommate/girlfriend" Lydia called for update, (her phone number is [phone]), she will call again tomorrow.
--- NOTE | 2018-08-09 19:09 | NUR ---
Bedside report given to GREYSON Wylie.
--- NOTE | 2018-08-09 19:10 | NUR ---
Report received from Catie Montiel RN. Pt sitting in bed at this time eating dinner, makes requests for assistance known to staff members. Mild tremors noted to bilateral hands as well as constant movement of bilateral legs while sitting in bed.
[2018-08-10] VITALS (15 sets, daily range): BP systolic 125–137; BP diastolic 84–90; PULSE 74–76; TEMP 97.9–99.1; O2SAT 95–99
--- NOTE | 2018-08-10 01:00 | NUR ---
Pts bed alarm went off at this time with 2 staff responding to call. Pt was sitting on edge of the bottom of the bed at the end of middle bed rail when staff approached. Pt requested use of the bathroom although when pt stood up pt was unsteady on his feet. Urinal was used at bedside with pt sitting on the edge of the bed. Following use of the urinal and pericare pt layed back down in bed and requested a warm blanket.
--- NOTE | 2018-08-10 05:00 | NUR ---
Nurse was notified that pt had left the unit heading in the direction of the express unit after ripping off monitor leads that were attached to pt. Pt was followed by 2 nurses on the unit and security/ smokehouse worker was notified. Security arrived shortly after incident. Just a couple mins later pt was noted to be walking through express unit accompanied by two ICU nurses and in house information security. Gait was unsteady from the pt although pt was cooperative with direction back to room. Pt was assisted back into bed and requested breakfast, due to the time being to early for the cafeteria to be open a lunch box was obtained as well as Pepsi. Pt got back into bed and allowed staff to reapply monitor leads and BP cuff. PRN Ativan was administered at this time. Following consumption of lunch box pt called out for assistance to put head of bed back down and lights/ tv to be turned off.
[2018-08-10 05:15] LABS: BASO % 0.5 % (0.0-2.0); EOS # 0.3 (0.0-0.7); EOS % 3.8 % (0-4.0); GRAN # 3.4 (1.4-6.5); GRAN % 51.5 % (42.2-75.2); HEMATOCRIT 32.8 % (42.0-52.0); HEMOGLOBIN 10.9 g/dl (13.5-18.0); LYMPH # 1.7 (1.2-3.4); LYMPH % 26.5 % (20.0-51.0); MEAN CELL VOLUME 94 fl (80.0-100.0); MEAN CORPUSCULAR HEMOGLOBIN 31 pg (27.0-31.0); MEAN CORPUSCULAR HGB CONC 33 g/dl (33.0-37.0); MEAN PLATELET VOLUME 10.8 fl (7.4-10.4); MONO # 1.1 (0.1-0.6); MONO % 17.4 % (1.7-9.3); PLATELET COUNT 155 K/mm3 (130-400)
[2018-08-10 05:32] LABS: CALCIUM 8.4 mg/dL (8.4-10.2); CREATININE, serum 0.64 (0.66-1.25); POTASSIUM 3.4 mmol/L (3.4-5.0)
--- NOTE | 2018-08-10 07:55 | NUR ---
Report received from GREYSON Wylie.
--- NOTE | 2018-08-10 08:00 | NUR ---
Assessment completed. Pt sleeping in bed, easily arousable. Pt oriented to person and place. Pt not willing to answer all questions asked. Breakfast ordered for pt. Discussed plan of care with pt r/t psych consult with Dr Abad. pt verbalized understanding. Call light in reach.
--- NOTE | 2018-08-10 11:45 | NUR ---
Received call from Joy, ICU cnc supervisor while transferring pt to medical floor. Pt found walking through Express trying to leave. Pt now sitting in wheelchair in ICU hallway drinking pepsi.
--- NOTE | 2018-08-10 11:54 | NUR ---
Pt still in wheelchair in ICU hallway. Refuses to go back to room. Called pt's , Lydia per pt request. Lydia will not be able to come in today. Pt states he would like to leave hospital now. He does not want to wait for Dr Abad. Explained to pt Drs would like for him to stay to monitor him. Pt still insisting to leave hospital. Pt has unsteady gait, walks back to ICU room to change clothes.
--- NOTE | 2018-08-10 12:05 | NUR ---
Notified social work pt's is unable to pick him up. Social work setting a ride for pt. Pt still wishes to leave AMA. Pt refuses to sign AMA papers. STates, "I don't sign no papers". Told pt ride will be picking him up by ER entrance. Pt walked out of ICU to ER waiting room waiting for ride.
--- NOTE | 2018-08-10 15:22 | NUR ---
ANAMAIRA was informed patient is going to leave AMA but does not have a ride home. ANAMARIA contacted patient's insurance and arranged them to pick patient up. ANAMARIA provided the nurses phone number to patient's insurance.
== END 2018-08-10 12:06 | disposition left against medical advice (07) | DRG 683 ==
LOC: MEDICAL 04:26 → ICU 04:26 → IMCU 07:15 → ICU 07:15 → MEDICAL 14:25 → ICU 08-09 08:56
PROVIDERS: Nurse Practitioner Family; ADMIT Internal Medicine Pulmonary Disease
DX: N17.9 Acute kidney failure, unspecified (principal); F15.93 Other stimulant use, unspecified with withdrawal; E87.2 Acidosis; F20.0 Paranoid schizophrenia; F17.210 Nicotine dependence, cigarettes, uncomplicated; E86.0 Dehydration; D72.828 Other elevated white blood cell count; B19.20 Unspecified viral hepatitis C without hepatic coma; I25.2 Old myocardial infarction; F41.8 Other specified anxiety disorders; F32.9 Major depressive disorder, single episode, unspecified; K21.9 Gastro-esophageal reflux disease without esophagitis
CPT/HCPCS: 99222-AI; 99233-AI; 99239; J2060; J7030

== ENCOUNTER 2018-08-10 12:38 | Emergency (ER) | payer MEDICAID ==
[~2018-08-10 12:38] MED LIST changes: +00186-0372-20 IH; +LOPRESSOR 225 MG/TAB PO; +NEURONTIN300 MG/CAP PO; +TRICOR 48MG48 MG PO
== END 2018-08-10 12:58 | disposition left against medical advice (07) ==
LOC: COL.ER 12:38
DX: K08.89 Other specified disorders of teeth and supporting structures (principal)